=== PATIENT | male | born 1990 ===

== ENCOUNTER 2017-08-12 19:29 | Inpatient (IN) | payer MEDICAID, OTHER ==
[2017-08-12 19:30] VITALS: BMI 24.3
[2017-08-12 20:46] LABS: BASO # 0.1 K/uL (0.0-0.2); BASO % 0.3 % (0.0-2.0); EOS % 0.2 % (0.0-4.0); HEMOGLOBIN 15.4 g/dL (12.0-18.0); LYMPH # 0.7 K/uL (1.0-4.3); LYMPH % 4.3 % (20.0-40.0); MEAN CELL VOLUME 88.8 fL (80.0-94.0); MEAN CORPUSCULAR HEMOGLOBIN 29.9 pg (27.0-31.0); MEAN CORPUSCULAR HGB CONC 33.7 g/dL (33.0-37.0); MEAN PLATELET VOLUME 10.2 fL (7.2-11.7); MONO # 0.8 K/uL (0.0-0.8); MONO % 4.9 % (0.0-10.0); NEUT # 14.7 K/uL (1.8-7.0); NEUT % 90.3 % (50.0-75.0); NRBC % 0.1 % (0.0-2.0); PLATELET COUNT 206 K/uL (130-400); RBC 5.16 Mil/uL (4.40-5.90); RED CELL DISTRIBUTION WIDTH 13.4 % (11.5-14.5); WHITE BLOOD COUNT 16.3 K/uL (4.8-10.8)
[2017-08-12 21:05] LABS: ALB/GLOB RATIO 1.3 (1.0-2.1); ALT/SGPT 54 U/L (21-72); AST/SGOT 51 U/L (17-59); BLOOD UREA NITROGEN 11 mg/dL (9-20); CALCIUM 9.3 mg/dl (8.6-10.4); GFR AFRICAN-AMERICAN > 60; GFR NON-AFRICAN AMERICAN > 60
[2017-08-12 21:17] LABS: BANDS 2 % (0-2); LYMPHOCYTE 6 % (20-40); MONOCYTE 8 % (0-10); NEUTROPHIL 84 % (50-75); PLATELET ESTIMATE NORMAL (NORMAL); TOTAL CELLS COUNTED 100
[2017-08-12] MEDS ORDERED: Vancomycin 1 gm/NS 200 ml 1 GM/200 ML BAG IVPB STA (21:31)
--- NOTE | 2017-08-12 22:02 | C.PDOC ---
History Of Present Illness Patient is a 27 y/o male who presents to the ED with a complaint of left knee pain and subjective fever for the last 5 days. Patient notes pain worsens with movement. Of note, patient reports to have received a tattoo to the left lower extremity 2 weeks ago. Denies any trauma. Chief Complaint (Nursing): Lower Extremity Problem/Injury History Per: Patient History/Exam Limitations: no limitations Onset/Duration Of Symptoms: Days (5) Current Symptoms Are (Timing): Still Present Recent travel outside of the [place]: No Past Medical History Reviewed: Historical Data, Nursing Documentation, Vital Signs Vital Signs: Last Vital Signs Temp 101 F H 08/12/17 19:52 Pulse 110 H 08/12/17 19:52 Resp 16 08/12/17 19:52 BP 126/74 08/12/17 19:52 Pulse Ox 98 08/12/17 22:04 - Medical History PMH: Anxiety Denies: Diabetes, Hepatitis, HIV, HTN, Chronic Kidney Disease, Seizures, Sexually Transmitted Disease Surgical History: No Surg Hx - [facility] Procedures INDIV PSYCHOTHERAPY FOR SUBSTANCE ABUSE TREATMENT, SUPPORT (07/17/16) Family History: States: Hypertension - Social History Hx Tobacco Use: Yes Hx Alcohol Use: No Hx Substance Use: Yes - Immunization History Hx Tetanus Toxoid Vaccination: Yes Hx Influenza Vaccination: No Hx Pneumococcal Vaccination: No Review Of Systems Constitutional: Positive for: Fever (subjective) Cardiovascular: Negative for: Chest Pain Respiratory: Negative for: Shortness of Breath Musculoskeletal: Positive for: Leg Pain (left knee pain) Physical Exam - Physical Exam Appears: Well, Non-toxic, No Acute Distress Skin: Normal Color, Warm, Dry, Other (diffuse erythema to the left knee, warm to touch) Head: Atraumatic, Normacephalic Oral Mucosa: Moist Neck: Supple Cardiovascular: Rhythm Regular, No Murmur Respiratory: Normal Breath Sounds, No Rales, No Rhonchi, No Wheezing Gastrointestinal/Abdominal: Soft, No Tenderness Extremity: No Normal ROM (slight decrease in ROM to left knee), No Deformity, No Swelling Pulses: Left Femoral: Normal, Left Dorsalis Pedis: Normal Neurological/Psych: Oriented x3, Normal Speech, Normal Cognition Gait: Steady ED Course And Treatment - Laboratory Results Result Diagrams: 08/12/17 20:39 08/12/17 20:39 O2 Sat by Pulse Oximetry: 98 Progress Note: Left knee XR and blood culture ordered. Tylenol and vancomycin administered. Case discussed with Dr Fontaine who agrees with plan and accepts patient under service. Patient admitted. Disposition - Disposition Disposition Time: 21:15 Condition: STABLE - Clinical Impression Clinical Impression: Joint swelling, Joint pain, Cellulitis of knee - Scribe Statement The provider has reviewed the documentation as recorded by the Scribe Leann Johnson All medical record entries made by the Jeromyibe were at my direction and personally dictated by me. I have reviewed the chart and agree that the record accurately reflects my personal performance of the history, physical exam, medical decision making, and the department course for this patient. I have also personally directed, reviewed, and agree with the discharge instructions and disposition.
[2017-08-13] MEDS ORDERED: cefTRIAXone 2 GM IN NS 2 GM/100 ML BAG IVPB SCH (09:00)
--- NOTE | 2017-08-13 09:03 | RAD ---
PROCEDURE: Left Knee Radiographs. HISTORY: Pain. COMPARISON: None. FINDINGS: BONES: No evidence of acute displaced fracture nor dislocation. The osseous structures intact. No cortical destructive changes are identified JOINTS: Joint spaces preserved. No significant osteoarthritis. JOINT EFFUSION: None. OTHER FINDINGS: No evidence of subcutaneous emphysema IMPRESSION: No evidence of acute displaced fracture nor dislocation. No obvious cortical destructive changes. No significant osteoarthritis. If cellulitis or early osteomyelitis suspected clinically recommend followup MRI and. .
[2017-08-13] MEDS: cefTRIAXone 2 GM in Sodium Chloride 0.9% 100 ML IVPB SCH (10:00)
--- NOTE | 2017-08-13 10:31 | CP.PCM.HP ---
History of Present Illness - History of Present Illness History of Present Illness: pt came for redness and pain swlling r knee had david few weeks ago had pastule which he squseed few days ago Present on Admission - Present on Admission Any Indicators Present on Admission: No Review of Systems - Constitutional Constitutional: As Per HPI - EENT Eyes: As Per HPI Ears: As Per HPI Nose/Mouth/Throat: As Per HPI - Cardiovascular Cardiovascular: As Per HPI - Respiratory Respiratory: As Per HPI - Gastrointestinal Gastrointestinal: As Per HPI - Genitourinary Genitourinary: As Per HPI - Reproductive: Male Reproductive:Male: As Per HPI - Musculoskeletal Additional comments: knee redness r and tederness and swelling - Integumentary Integumentary: As Per HPI - Neurological Neurological: As Per HPI - Psychiatric Psychiatric: As Per HPI - Endocrine Endocrine: As Per HPI - Hematologic/Lymphatic Hematologic: As Per HPI Past Patient History - Infectious Disease Hx of Infectious Diseases: None - Past Medical History & Family History Past Medical History?: Yes - Past Social History Smoking Status: Light Smoker < 10 Cigarettes Daily - CARDIAC Hx Hypertension: No - PULMONARY Hx Respiratory Disorders: No - NEUROLOGICAL Hx Seizures: No - HEENT Hx HEENT Problems: No - RENAL Hx Chronic Kidney Disease: No - ENDOCRINE/METABOLIC Hx Endocrine Disorders: No - HEMATOLOGICAL/ONCOLOGICAL Hx Human Immunodeficiency Virus (HIV): No - INTEGUMENTARY Hx Dermatological Problems: No - MUSCULOSKELETAL/RHEUMATOLOGICAL Hx Falls: No - GASTROINTESTINAL Hx Gastrointestinal Disorders: No - GENITOURINARY/GYNECOLOGICAL Hx Sexually Transmitted Disorders: No - PSYCHIATRIC Hx Anxiety: Yes Hx Substance Use: Yes - SURGICAL HISTORY Hx Surgeries: No - ANESTHESIA Hx Anesthesia: Yes Hx Anesthesia Reactions: No Meds Allergies/Adverse Reactions: Allergies Allergy/AdvReac Type Severity Reaction Status Date / Time No Known Allergies Allergy Verified 08/12/17 19:56 Physical Exam - Constitutional Appears: In Acute Distress - Head Exam Head Exam: ATRAUMATIC - Eye Exam Eye Exam: Normal appearance Pupil Exam: NORMAL ACCOMODATION - ENT Exam ENT Exam: Mucous Membranes Moist - Neck Exam Neck exam: Positive for: Normal Inspection - Respiratory Exam Respiratory Exam: Clear to Auscultation Bilateral - Cardiovascular Exam Cardiovascular Exam: REGULAR RHYTHM - GI/Abdominal Exam GI & Abdominal Exam: Normal Bowel Sounds - Rectal Exam Rectal Exam: NORMAL INSPECTION - Exam Exam: NORMAL INSPECTION - Extremities Exam Additional comments: r knee celulitis - Back Exam Back exam: NORMAL INSPECTION - Neurological Exam Neurological exam: Alert, Normal Gait, Oriented x3 - Psychiatric Exam Psychiatric exam: Normal Affect - Skin Skin Exam: Normal Color Results - Vital Signs Recent Vital Signs: Last Vital Signs Temp 99.3 F 08/13/17 07:30 Pulse 58 L 08/13/17 07:30 Resp 20 08/13/17 07:30 BP 129/84 08/13/17 07:30 Pulse Ox 98 08/13/17 07:30 - Labs Result Diagrams: 08/12/17 20:39 08/12/17 20:39 Labs: Laboratory Results - last 24 hr 08/12/17 08/12/17 20:39 20:39 WBC 16.3 H D RBC 5.16 Hgb 15.4 Hct 45.8 MCV 88.8 D MCH 29.9 MCHC 33.7 RDW 13.4 Plt Count 206 MPV 10.2 Neut % (Auto) 90.3 H Lymph % (Auto) 4.3 L [place] % (Auto) 4.9 Eos % (Auto) 0.2 Baso % (Auto) 0.3 Neut # (Auto) 14.7 H Lymph # (Auto) 0.7 L [place] # (Auto) 0.8 Eos # (Auto) 0.0 Baso # (Auto) 0.1 Neutrophils % (Manual) 84 H Band Neutrophils % 2 Lymphocytes % (Manual) 6 L Monocytes % (Manual) 8 Platelet Estimate Normal RBC Morphology Normal Sodium 138 Potassium 4.3 Chloride 100 Carbon Dioxide 25 Anion Gap 18 BUN 11 Creatinine 0.8 Est GFR ( Amer) > 60 Est GFR (Non-Af Amer) > 60 Random Glucose 80 Calcium 9.3 Total Bilirubin 0.8 AST 51 ALT 54 Alkaline Phosphatase 75 Total Protein 8.8 H Albumin 5.0 Globulin 3.7 Albumin/Globulin Ratio 1.3 Assessment & Plan - Assessment and Plan (Free Text) Assessment: oj celulitis r knee r/o osteo Plan: as per orders - Date & Time Date: 08/13/17 Time: 10:33
[2017-08-13] MEDS: Oxycodone/Acetaminophen 5/325 mg Tab PO PRN ×2 (11:09→17:06)
[2017-08-13] MEDS ORDERED: Gadodiamide 287 mg/ml 20 ml IV ONE (12:45)
--- NOTE | 2017-08-13 14:38 | CP.PCM.CON ---
History of Present Illness - History of Present Illness History of Present Illness: dictated Past Patient History - Infectious Disease Hx of Infectious Diseases: None - Past Medical History & Family History Past Medical History?: Yes - Past Social History Smoking Status: Light Smoker < 10 Cigarettes Daily - CARDIAC Hx Hypertension: No - PULMONARY Hx Respiratory Disorders: No - NEUROLOGICAL Hx Seizures: No - HEENT Hx HEENT Problems: No - RENAL Hx Chronic Kidney Disease: No - ENDOCRINE/METABOLIC Hx Endocrine Disorders: No - HEMATOLOGICAL/ONCOLOGICAL Hx Human Immunodeficiency Virus (HIV): No - INTEGUMENTARY Hx Dermatological Problems: No - MUSCULOSKELETAL/RHEUMATOLOGICAL Hx Falls: No - GASTROINTESTINAL Hx Gastrointestinal Disorders: No - GENITOURINARY/GYNECOLOGICAL Hx Sexually Transmitted Disorders: No - PSYCHIATRIC Hx Anxiety: Yes Hx Substance Use: Yes - SURGICAL HISTORY Hx Surgeries: No - ANESTHESIA Hx Anesthesia: Yes Hx Anesthesia Reactions: No Meds Allergies/Adverse Reactions: Allergies Allergy/AdvReac Type Severity Reaction Status Date / Time No Known Allergies Allergy Verified 08/12/17 19:56 - Medications Medications: Current Medications Enoxaparin Sodium (Lovenox) 40 mg SC DAILY [facility] Vancomycin HCl 1,250 gm/ (Sodium Chloride) 250 mls @ 167 mls/hr IVPB Q12 LEFTY PRN Reason: Protocol Last Admin: 08/13/17 10:55 Dose: 167 mls/hr Ceftriaxone Sodium 2 gm/ (Sodium Chloride) 100 mls @ 200 mls/hr IVPB Q24H LEFTY PRN Reason: Protocol Last Admin: 08/13/17 10:00 Dose: 200 mls/hr Oxycodone/Acetaminophen (Percocet 5/325 Mg Tab) 1 tab PO Q6H PRN PRN Reason: Pain, severe (8-10) Stop: 08/16/17 06:22 Last Admin: 08/13/17 11:09 Dose: 1 tab Pneumococcal Polyvalent Vaccine (Pneumovax 23 Vaccine) 0.5 ml IM .ONCE ONE Stop: 08/14/17 10:01 Results - Vital Signs Recent Vital Signs: Last Vital Signs Temp 99.3 F 08/13/17 07:30 Pulse 58 L 08/13/17 07:30 Resp 20 08/13/17 07:30 BP 129/84 08/13/17 07:30 Pulse Ox 98 08/13/17 07:30 - Labs Result Diagrams: 08/12/17 20:39 08/12/17 20:39 Labs: Laboratory Results - last 24 hr 08/12/17 08/12/17 20:39 20:39 WBC 16.3 H D RBC 5.16 Hgb 15.4 Hct 45.8 MCV 88.8 D MCH 29.9 MCHC 33.7 RDW 13.4 Plt Count 206 MPV 10.2 Neut % (Auto) 90.3 H Lymph % (Auto) 4.3 L [place] % (Auto) 4.9 Eos % (Auto) 0.2 Baso % (Auto) 0.3 Neut # (Auto) 14.7 H Lymph # (Auto) 0.7 L [place] # (Auto) 0.8 Eos # (Auto) 0.0 Baso # (Auto) 0.1 Neutrophils % (Manual) 84 H Band Neutrophils % 2 Lymphocytes % (Manual) 6 L Monocytes % (Manual) 8 Platelet Estimate Normal RBC Morphology Normal Sodium 138 Potassium 4.3 Chloride 100 Carbon Dioxide 25 Anion Gap 18 BUN 11 Creatinine 0.8 Est GFR ( Amer) > 60 Est GFR (Non-Af Amer) > 60 Random Glucose 80 Calcium 9.3 Total Bilirubin 0.8 AST 51 ALT 54 Alkaline Phosphatase 75 Total Protein 8.8 H Albumin 5.0 Globulin 3.7 Albumin/Globulin Ratio 1.3
[2017-08-13 17:45] LABS: HEPATITIS B SURFACE AG Negative (NEGATIVE)
[2017-08-13 17:51] LABS: HEPATITIS A IGM NEGATIVE (NEGATIVE); HEPATITIS B CORE AB NEGATIVE (NEGATIVE)
[2017-08-13 18:02] LABS: HEPATITIS C ANTIBODY NEGATIVE (NEGATIVE)
--- NOTE | 2017-08-13 18:28 | MRI ---
EXAM: MR Left Lower Extremity Without and With Intravenous Contrast, Knee EXAM DATE/TIME: Exam ordered 08/13/2017 11:50 AM CLINICAL HISTORY: 27 years old, male; Signs and symptoms; Swelling or effusion of joint; Knee; Additional info: R/O om TECHNIQUE: Multiplanar magnetic resonance images of the left knee without and with intravenous contrast. CONTRAST: 17 mL of 17 administered intravenously. COMPARISON: CR - KNEE 3 VIEWS LT 2015-01-12 19:16 FINDINGS: BONES/JOINTS/CARTILAGE: Patellofemoral compartment: There is a small amount of fluid in the suprapatellar bursa. Femorotibial compartments: Unremarkable. Extensor mechanism: Unremarkable. Medial meniscus: There is abnormal signal noted within the posterior horn of the medial meniscus communicating with the inferior articular surface. Lateral meniscus: Unremarkable. No tear. Medial capsule/supporting structures: Unremarkable. Normal medial collateral ligament. Lateral capsule/supporting structures: Unremarkable. Normal lateral collateral ligament. Anterior cruciate ligament: Unremarkable. Posterior cruciate ligament: Unremarkable. Musculature: Unremarkable. Soft tissues: There is edema noted within the prepatellar soft tissues extending into inferiorly and laterally IMPRESSION: 1. No osteomyelitis. 2. Prepatellar bursitis/cellulitis. 3. Oblique cleavage tear of the posterior horn the medial meniscus. 4. Small left joint effusion
[2017-08-13] MEDS ORDERED: Oxycodone/Acetaminophen 5/325 mg Tab PO ONE (21:00)
--- NOTE | 2017-08-14 02:07 | CON ---
DATE: 08/13/2017 REQUESTED BY: Dr. Steph Oliveira. HISTORY OF PRESENT ILLNESS: This patient is a 27-year-old male. He came to the emergency room with left knee pain and having fevers for last five days and pain was worse when he would put his foot down and have a movement. He states two weeks ago, he shaved his left leg to get a tattoo, and after the tattoo, he states he did have a cut from the razor. At that time, he did not make any notice of it. He did go for the tattoo. After getting the tattoo, he started to have these small abscess on his left knee, and he states four days ago, it started to come up and was very painful, so he decided to shave it, and after shaving, it became more painful and has fever. He came with a temp of 101 here. He is feeling little better at this time, he denies any HIV disease. He states he was tested in his doctor's office recently, and he is waiting to get the report. He thinks he has lot of tattoos on his upper body as well as legs and arms and tattoo is very significant part of his body at this time. MEDICATIONS: He takes no medication. ALLERGIES: HE IS NOT ALLERGIC TO ANY MEDICINE. 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 PAST MEDICAL HISTORY: He has no history of diabetes. He denies any hepatitis, HIV, hypertension, chronic kidney disease, or any STDs. He did test; however, for HIV. SURGERY: He has had no previous surgeries. REVIEW OF SYSTEMS: He was running fevers. Denies any headaches. Denies ear, nose, throat problem. Denies any chest pain. No shortness of breath. No abdominal pain. No nausea, no vomiting. Does have left knee pain as well as pain from the left knee goes to the foot. He has some opening on top of the tattoo, left tattoo as well as on the left knee. He has diffuse swelling, warmth, and redness, and small few abscesses. He denies any other skin problems in the past. He did show me, however, one scab which he had from long time ago from the right side. He has no urinary problems. Denies any STDs. PHYSICAL EXAMINATION: VITAL SIGNS: I find his temperature was 100 today in the morning, blood pressure is 129/84, respirations are 20, heart rate is 58. His temp is now 99.3. HEENT: Head is atraumatic, normocephalic. He did state he had a tetanus shot two years ago for a cut. Head is atraumatic, normocephalic. Pupils are reacting to light. Eye movements are unremarkable. Tongue is moist. NECK: Supple. JVP is flat. Trachea is central. No lymphadenopathy present. LUNGS: Clear to auscultation. No crackles or rales present. HEART: S1, S2 is regular. No murmurs appreciated. ABDOMEN: Soft, nontender, no guarding, no rigidity present. Left knee has cellulitis with few abscesses, maybe some effusion. He went for an MRI and has a tattoo which is involving the whole of the left leg and this also has some area which may have a small abscess within the tattoo but it is too small to figure that out with the black tattoo on top. There is mild warmth of the leg but more warmth on the left knee. There may be some effusion but this is mostly in the __knee___ area;which has the redness, swelling, and small abscess. IMPRESSION: Right leg is unremarkable. Labs are noted. White count was 16.3 yesterday, hemoglobin is 15.4, hematocrit 45.8, platelet count is 206. Sodium is 138, potassium 4.3, chloride 100, bicarb is 25, BUN is 11, creatinine is 0.8, and sugar was 80. I want to see if he is already antibiotics, he is started on vancomycin 1250 every 12 hours, and I also put him on Rocephin not knowing the etiology initially and blood culture was done. Urine culture was received. White count is 16.3. We will order labs for tomorrow, and he went for an MRI report of which is pending. Left knee was done x-ray which shows, they made a comparison, there is no evidence of acute displaced fracture, no dislocation, no obvious cortical destructive changes, no significant osteolyses. If cellulitis are at least suspected, recommend MRI. While at this time, my impression is that he has left knee cellulitis with abscess . He did say he had a cut on the leg and may be the bacteria got in from there. He has small tiny abscesses along with cellulitis on the left knee. I doubt he has a septic arthritis. We will wait for the MRI report, and orthopedic report suggest at this time to continue vancomycin and Rocephin, and if there is small abscesses rupture, we can send a wound culture or if they are denuded, we will follow again tomorrow to repeat the labs again, ESR, and I would like to get HIV and hepatitis profile on this patient because he has multiple tattoos and will follow otherwise. He denies and any STDs, denies any sore throat, denies any urinary complaints, and I told him not to get any more tattoos done as his whole body is covered with them Cj Esposito MD [facility]
[2017-08-14 08:19] LABS: BASO # 0.1 K/uL (0.0-0.2); BASO % 0.8 % (0.0-2.0); EOS # 0.2 K/uL (0.0-0.7); HEMOGLOBIN 14.8 g/dL (12.0-18.0); LYMPH # 1.3 K/uL (1.0-4.3); LYMPH % 12.8 % (20.0-40.0); MEAN CELL VOLUME 88.6 fL (80.0-94.0); MEAN PLATELET VOLUME 10.2 fL (7.2-11.7); MONO # 0.6 K/uL (0.0-0.8); MONO % 6.2 % (0.0-10.0); NEUT # 8.2 K/uL (1.8-7.0); NEUT % 78.2 % (50.0-75.0); NRBC % 0.2 % (0.0-2.0); RBC 4.76 Mil/uL (4.40-5.90); RED CELL DISTRIBUTION WIDTH 13.1 % (11.5-14.5); WHITE BLOOD COUNT 10.5 K/uL (4.8-10.8)
[2017-08-14 08:41] LABS: ALB/GLOB RATIO 1.3 (1.0-2.1); ALBUMIN 4.2 g/dL (3.5-5.0); ALT/SGPT 37 U/L (21-72); AST/SGOT 25 U/L (17-59); BLOOD UREA NITROGEN 11 mg/dL (9-20); CALCIUM 9.2 mg/dl (8.6-10.4); GFR AFRICAN-AMERICAN > 60; GFR NON-AFRICAN AMERICAN > 60
[2017-08-14] MEDS: cefTRIAXone 2 GM in Sodium Chloride 0.9% 100 ML IVPB SCH (09:36)
[2017-08-14] MEDS: Oxycodone/Acetaminophen 5/325 mg Tab PO PRN ×2 (09:37→18:33)
[2017-08-14] MEDS: Enoxaparin 40 mg Syringe SC SCH (09:44)
[2017-08-14] MEDS ORDERED: Pneumococcal 23-Valent Vaccine IM ONE (10:00)
[2017-08-14] MEDS ORDERED: Oxycodone/Acetaminophen 5/325 mg Tab PO STA (11:06)
--- NOTE | 2017-08-14 11:12 | CP.PCM.PN ---
Subjective - Date & Time of Evaluation Date of Evaluation: 08/14/17 Time of Evaluation: 11:09 - Subjective Subjective: still in pain swelling redness knee had skin bulous aspirated and sent for culture today Objective - Vital Signs/Intake and Output Vital Signs (last 24 hours): Temp Pulse Resp BP Pulse Ox 98.6 F 54 L 20 128/84 96 08/14/17 08:33 08/14/17 08:33 08/14/17 08:33 08/14/17 08:33 08/14/17 08:33 Intake and Output: 08/14/17 08/14/17 06:59 18:59 Intake Total 120 Output Total 500 Balance -380 - Medications Medications: Current Medications Enoxaparin Sodium (Lovenox) 40 mg SC DAILY [facility] Last Admin: 08/14/17 09:44 Dose: 40 mg Ceftriaxone Sodium 2 gm/ (Sodium Chloride) 100 mls @ 200 mls/hr IVPB Q24H LEFTY PRN Reason: Protocol Last Admin: 08/14/17 09:36 Dose: 200 mls/hr Vancomycin HCl 1,250 gm/ (Sodium Chloride) 250 mls @ 167 mls/hr IVPB Q12 LEFTY PRN Reason: Protocol Oxycodone/Acetaminophen (Percocet 5/325 Mg Tab) 1 tab PO Q6H PRN PRN Reason: Pain, severe (8-10) Stop: 08/16/17 06:22 Last Admin: 08/14/17 09:37 Dose: 1 tab - Labs Labs: 08/14/17 08:08 08/14/17 08:08 - Constitutional Appears: In Acute Distress - Head Exam Head Exam: NORMOCEPHALIC - Eye Exam Eye Exam: Normal appearance Pupil Exam: NORMAL ACCOMODATION - ENT Exam ENT Exam: Normal Exam - Neck Exam Neck Exam: Full ROM - Respiratory Exam Respiratory Exam: NORMAL BREATHING PATTERN - Cardiovascular Exam Cardiovascular Exam: REGULAR RHYTHM - GI/Abdominal Exam GI & Abdominal Exam: Normal Bowel Sounds - Rectal Exam Rectal Exam: Deferred - Exam Exam: NORMAL INSPECTION - Extremities Exam Extremities Exam: Normal Capillary Refill Additional comments: knee swalen skinred - Back Exam Back Exam: NORMAL INSPECTION - Neurological Exam Neurological Exam: Alert, Oriented x3 - Psychiatric Exam Psychiatric exam: Normal Affect - Skin Skin Exam: Normal Color Assessment and Plan - Assessment and Plan (Free Text) Assessment: ac celulitis knee sweling infection no osteomilitis Plan: cont iv antibiotics
--- NOTE | 2017-08-14 20:56 | CP.PCM.PN ---
Subjective - Date & Time of Evaluation Date of Evaluation: 08/14/17 Time of Evaluation: 05:40 - Subjective Subjective: dictated Objective - Vital Signs/Intake and Output Vital Signs (last 24 hours): Temp Pulse Resp BP Pulse Ox 98.4 F 52 L 18 133/80 99 08/14/17 15:55 08/14/17 15:55 08/14/17 15:55 08/14/17 15:55 08/14/17 15:55 Intake and Output: 08/14/17 08/15/17 18:59 06:59 Intake Total 1150 Balance 1150 - Medications Medications: Current Medications Enoxaparin Sodium (Lovenox) 40 mg SC DAILY [facility] Last Admin: 08/14/17 09:44 Dose: 40 mg Ceftriaxone Sodium 2 gm/ (Sodium Chloride) 100 mls @ 200 mls/hr IVPB Q24H LETFY PRN Reason: Protocol Last Admin: 08/14/17 09:36 Dose: 200 mls/hr Vancomycin HCl 1,250 mg/ (Sodium Chloride) 250 mls @ 167 mls/hr IVPB Q12H LEFTY PRN Reason: Protocol Last Admin: 08/14/17 12:42 Dose: 167 mls/hr Oxycodone/Acetaminophen (Percocet 5/325 Mg Tab) 1 tab PO Q6H PRN PRN Reason: Pain, severe (8-10) Stop: 08/16/17 06:22 Last Admin: 08/14/17 18:33 Dose: 1 tab - Labs Labs: 08/14/17 08:08 08/14/17 08:08
[2017-08-15] MEDS: Oxycodone/Acetaminophen 5/325 mg Tab PO PRN ×4 (00:43→21:31)
[2017-08-15 01:18] VITALS: RESP 20
--- NOTE | 2017-08-15 01:28 | PN ---
DATE: 08/14/2017 SUBJECTIVE: He still complains of left knee pain and left thigh pain, and he was asking for Percocet to the nurse when I went to see him. His cellulitis over the knee was getting better though wound culture was pending and still has redness and swelling. They aspirated the small abscess, which was there and has been sent for culture. He has a history of anxiety. PHYSICAL EXAMINATION: GENERAL: He is very anxious. VITAL SIGNS: T-max was 98.6, heart rate was 54, blood pressure 128/84, respirations are 20. HEENT: Head is atraumatic and normocephalic. NECK: Supple. LUNGS: Clear. HEART: S1 and S2 are regular. ABDOMEN: Soft. Nontender. EXTREMITIES: Left knee with decreasing redness and swelling. Has a dressing at this time where they aspirated. He has tattoo christiansen on the left leg, which seems to be also healing at this time. LABORATORY DATA: White count 10.5, hemoglobin 14.8, hematocrit 42.2, platelet count is 217. Chemistry showed sodium 138, potassium 4.3, chloride of 103, CO2 is 25, BUN is 11, creatinine 0.9. C-reactive protein is 59. ASSESSMENT AND PLAN: We also did HIV and hepatitis profile, which are both negative at this time because he does have tattoo christiansen and vancomycin trough was 6.4, which was low, I think, he is getting 1 gm. He is on Rocephin also, and he is on vancomycin 1250 mg every 12 hours. At this time, we will leave it at this. He had an MRI done, which showed no involvement of the knee, but it shows cellulitis in suprapatellar. It showed no osteomyelitis, prepatellar bursitis, and cellulitis obliquely with tear of the posterior horn of the medial meniscus, small left joint effusion. At this time, he has prepatellar bursitis and cellulitis and came in with a high white count and fever. We will need to follow the culture report depending on how he responds. He may need antibiotics. I think in his case it is better to give oral. We will see ortho evaluation. Cj Esposito MD
[2017-08-15] MEDS: Enoxaparin 40 mg Syringe SC SCH (09:14)
[2017-08-15] MEDS: cefTRIAXone 2 GM in Sodium Chloride 0.9% 100 ML IVPB SCH (09:17)
--- NOTE | 2017-08-15 15:45 | CP.PCM.PN ---
Subjective - Date & Time of Evaluation Date of Evaluation: 08/15/17 Time of Evaluation: 03:00 - Subjective Subjective: dictated Objective - Vital Signs/Intake and Output Vital Signs (last 24 hours): Temp Pulse Resp BP Pulse Ox 98.1 F 59 L 20 124/58 L 96 08/15/17 08:46 08/15/17 08:46 08/15/17 08:46 08/15/17 08:46 08/15/17 08:46 Intake and Output: 08/15/17 08/15/17 06:59 18:59 Intake Total 490 Output Total 350 Balance 140 - Medications Medications: Current Medications Enoxaparin Sodium (Lovenox) 40 mg SC DAILY [facility] Last Admin: 08/15/17 09:14 Dose: 40 mg Ceftriaxone Sodium 2 gm/ (Sodium Chloride) 100 mls @ 200 mls/hr IVPB Q24H LEFTY PRN Reason: Protocol Last Admin: 08/15/17 09:17 Dose: 200 mls/hr Vancomycin HCl 1,250 mg/ (Sodium Chloride) 250 mls @ 167 mls/hr IVPB Q12H LEFTY PRN Reason: Protocol Last Admin: 08/15/17 12:40 Dose: 167 mls/hr Oxycodone/Acetaminophen (Percocet 5/325 Mg Tab) 1 tab PO Q6H PRN PRN Reason: Pain, severe (8-10) Stop: 08/16/17 06:22 Last Admin: 08/15/17 09:15 Dose: 1 tab - Labs Labs: 08/14/17 08:08 08/14/17 08:08
--- NOTE | 2017-08-15 15:58 | CP.PCM.PN ---
Subjective - Date & Time of Evaluation Date of Evaluation: 08/15/17 Time of Evaluation: 15:55 - Subjective Subjective: pt feels beter pastular vesicle discarge pus opened skin redness and knee tenerness is beter Objective - Vital Signs/Intake and Output Vital Signs (last 24 hours): Temp Pulse Resp BP Pulse Ox 98.1 F 59 L 20 124/58 L 96 08/15/17 08:46 08/15/17 08:46 08/15/17 08:46 08/15/17 08:46 08/15/17 08:46 Intake and Output: 08/15/17 08/15/17 06:59 18:59 Intake Total 490 300 Output Total 350 Balance 140 300 - Medications Medications: Current Medications Enoxaparin Sodium (Lovenox) 40 mg SC DAILY [facility] Last Admin: 08/15/17 09:14 Dose: 40 mg Ceftriaxone Sodium 2 gm/ (Sodium Chloride) 100 mls @ 200 mls/hr IVPB Q24H LEFTY PRN Reason: Protocol Last Admin: 08/15/17 09:17 Dose: 200 mls/hr Vancomycin HCl 1,250 mg/ (Sodium Chloride) 250 mls @ 167 mls/hr IVPB Q12H LEFTY PRN Reason: Protocol Last Admin: 08/15/17 12:40 Dose: 167 mls/hr Mupirocin (Bactroban Ointment) 1 gm TOP BID LEFTY Oxycodone/Acetaminophen (Percocet 5/325 Mg Tab) 1 tab PO Q6H PRN PRN Reason: Pain, severe (8-10) Stop: 08/16/17 06:22 Last Admin: 08/15/17 15:00 Dose: 1 tab - Labs Labs: 08/14/17 08:08 08/14/17 08:08 - Constitutional Appears: Non-toxic - Head Exam Head Exam: NORMAL INSPECTION - Eye Exam Eye Exam: Normal appearance Pupil Exam: NORMAL ACCOMODATION - ENT Exam ENT Exam: Normal Exam - Neck Exam Neck Exam: Normal Inspection - Respiratory Exam Respiratory Exam: Clear to Ausculation Bilateral - Cardiovascular Exam Cardiovascular Exam: REGULAR RHYTHM - GI/Abdominal Exam GI & Abdominal Exam: Normal Bowel Sounds - Rectal Exam Rectal Exam: NORMAL INSPECTION - Exam Exam: NORMAL INSPECTION - Extremities Exam Additional comments: knee less swalen less redness - Back Exam Back Exam: NORMAL INSPECTION - Neurological Exam Neurological Exam: Oriented x3 - Psychiatric Exam Psychiatric exam: Normal Mood - Skin Skin Exam: Normal Color Assessment and Plan - Assessment and Plan (Free Text) Assessment: ac inection skin and pastule pain swling knee imroving cont antibiotics Plan: as per orders
--- NOTE | 2017-08-16 00:35 | PN ---
DATE: 08/15/2017 SUBJECTIVE: Patient still complains of pain when he stands. He says the pain is in the knee but knee is looking little better. I am still waiting for the culture reports and there is still has some redness and has some drainage, so we will get him mupirocin cream to apply locally. OBJECTIVE: VITAL SIGNS: T-max is 98.1, pulse is 51, blood pressure 137/86, respirations are 20. HEENT: Head is atraumatic and normocephalic. NECK: Supple. LUNGS: Clear. No crackles and rales present. HEART: S1, S2 is regular. ABDOMEN: Soft, nontender. No guarding, no rigidity present. EXTREMITIES: Left knee has minimal fluctuance. ASSESSMENT AND PLAN: This area where there was an abscess still appears unclean now, so we will put mupirocin and redness is decreasing and that daisha appears unremarkable now which he has on his leg. I am waiting for the sensitivities if tomorrow. If this gram-positive cocci comes out to be methicillin-sensitive, then he can go on dicloxacillin 500 q.i.d. for another 10 days and if it is methicillin-resistant Staphylococcus aureus, then we will have to give Zyvox 600 one p.o. b.i.d. for 2 weeks. We will continue the culture reports hopefully tomorrow and if he improves further, then we will discuss about discharge with the primary. Thank you and we will follow with you. Cj Esposito MD
[2017-08-16] MEDS: AMPHETAMINE SALT 10 MG PO SCH ×2 (08:20→12:23)
[2017-08-16] MEDS: cefTRIAXone 2 GM in Sodium Chloride 0.9% 100 ML IVPB SCH (09:14)
[2017-08-16] MEDS: Enoxaparin 40 mg Syringe SC SCH (09:16)
[2017-08-16] MEDS: Oxycodone/Acetaminophen 5/325 mg Tab PO PRN ×2 (09:32→15:16)
--- NOTE | 2017-08-16 12:16 | CP.PCM.PN ---
Subjective - Date & Time of Evaluation Date of Evaluation: 08/16/17 Time of Evaluation: 12:13 - Subjective Subjective: pt feels good celuliti improved the pastule culture is posive mrsa Objective - Vital Signs/Intake and Output Vital Signs (last 24 hours): Temp Pulse Resp BP Pulse Ox 98.2 F 97 H 20 118/70 100 08/16/17 08:52 08/16/17 08:52 08/16/17 08:52 08/16/17 08:52 08/16/17 08:52 Intake and Output: 08/16/17 08/16/17 06:59 18:59 Intake Total 1450 Balance 1450 - Medications Medications: Current Medications Enoxaparin Sodium (Lovenox) 40 mg SC DAILY [facility] Last Admin: 08/16/17 09:16 Dose: 40 mg Home Med (Patient's Own Control Medication) 1 tab PO 0800,1200 [facility] Last Admin: 08/16/17 08:20 Dose: 1 tab Ceftriaxone Sodium 2 gm/ (Sodium Chloride) 100 mls @ 200 mls/hr IVPB Q24H LEFTY PRN Reason: Protocol Last Admin: 08/16/17 09:14 Dose: 200 mls/hr Vancomycin HCl 1,250 mg/ (Sodium Chloride) 250 mls @ 167 mls/hr IVPB Q12H LEFTY PRN Reason: Protocol Last Admin: 08/16/17 00:03 Dose: 167 mls/hr Mupirocin (Bactroban Ointment) 1 gm TOP BID [facility] Last Admin: 08/16/17 09:15 Dose: 1 gm Oxycodone/Acetaminophen (Percocet 5/325 Mg Tab) 1 tab PO Q6H PRN PRN Reason: Pain, severe (8-10) Stop: 08/19/17 08:38 Last Admin: 08/16/17 09:32 Dose: 1 tab - Labs Labs: 08/14/17 08:08 08/14/17 08:08 - Constitutional Appears: Non-toxic - Head Exam Head Exam: NORMOCEPHALIC - Eye Exam Eye Exam: PERRL Pupil Exam: NORMAL ACCOMODATION - ENT Exam ENT Exam: Mucous Membranes Moist - Neck Exam Neck Exam: Normal Inspection - Respiratory Exam Respiratory Exam: Clear to Ausculation Bilateral, NORMAL BREATHING PATTERN - Cardiovascular Exam Cardiovascular Exam: REGULAR RHYTHM - GI/Abdominal Exam GI & Abdominal Exam: Normal Bowel Sounds - Rectal Exam Rectal Exam: NORMAL INSPECTION - Exam Exam: NORMAL INSPECTION - Extremities Exam Extremities Exam: Normal Capillary Refill, Normal Inspection - Back Exam Back Exam: NORMAL INSPECTION - Neurological Exam Neurological Exam: Normal Gait, Oriented x3 - Psychiatric Exam Psychiatric exam: Normal Mood - Skin Skin Exam: Normal Color Assessment and Plan - Assessment and Plan (Free Text) Assessment: celulitis leg and knee imroved pastul culter skin mrsa infection cont as per id consult
--- NOTE | 2017-08-16 15:52 | CP.PCM.PN ---
Subjective - Date & Time of Evaluation Date of Evaluation: 08/16/17 Time of Evaluation: 03:35 - Subjective Subjective: dictated Objective - Vital Signs/Intake and Output Vital Signs (last 24 hours): Temp Pulse Resp BP Pulse Ox 98.2 F 97 H 20 118/70 100 08/16/17 08:52 08/16/17 08:52 08/16/17 08:52 08/16/17 08:52 08/16/17 08:52 Intake and Output: 08/16/17 08/16/17 06:59 18:59 Intake Total 1450 300 Balance 1450 300 - Medications Medications: Current Medications Enoxaparin Sodium (Lovenox) 40 mg SC DAILY [facility] Last Admin: 08/16/17 09:16 Dose: 40 mg Home Med (Patient's Own Control Medication) 1 tab PO 0800,1200 [facility] Last Admin: 08/16/17 12:23 Dose: 1 tab Ceftriaxone Sodium 2 gm/ (Sodium Chloride) 100 mls @ 200 mls/hr IVPB Q24H LEFTY PRN Reason: Protocol Last Admin: 08/16/17 09:14 Dose: 200 mls/hr Vancomycin HCl 1,250 mg/ (Sodium Chloride) 250 mls @ 167 mls/hr IVPB Q12H LEFTY PRN Reason: Protocol Last Admin: 08/16/17 12:21 Dose: 167 mls/hr Mupirocin (Bactroban Ointment) 1 gm TOP BID [facility] Last Admin: 08/16/17 09:15 Dose: 1 gm Oxycodone/Acetaminophen (Percocet 5/325 Mg Tab) 1 tab PO Q6H PRN PRN Reason: Pain, severe (8-10) Stop: 08/19/17 08:38 Last Admin: 08/16/17 15:16 Dose: 1 tab - Labs Labs: 08/14/17 08:08 08/14/17 08:08
[2017-08-16 16:07] VITALS: BP 134/85; PULSE 61; TEMP 98.4; O2SAT 97
--- NOTE | 2017-08-16 16:12 | CP.PCM.PN ---
Subjective - Date & Time of Evaluation Date of Evaluation: 08/16/17 Time of Evaluation: 16:10 - Subjective Subjective: PT SEEN BY DR. SEAY THIS AFTERNOON AND BY DR. BOYCE AND CLEARED FOR D/C HOME TODAY. RX GIVEN TO PT BY DR. BOYCE. PT TO F/U WITH Danielle SEAY IN THE OFFICE. NO FURTHER ORDERS. -FOLLOW UP WITH DR. SEAY IN HER OFFICE IN 1 WEEK---CALL THE OFFICE TO MAKE AN APPT. -NEW PRESCRIPTIONS INCLUDE: 1) MUPIROCIN CREAM TO BE APPLIED TO THE AFFECTED KNEE TWICE A DAY. 2) MUPIROCIN OINTMENT TO BE APPLIED TO BOTH NOSTRILS TWICE A DAY FOR 10 DAYS. 3) CLINDAMYCIN 300 MG THREE TIMES A DAY FOR 10 DAYS 4) ACIDOPHILUS TWICE A DAY FOR 20 DAYS. -PLEASE BE CAREFUL WITH YOUR KNEE; THE INFECTION YOU HAVE IS CONTAGIOUS. -IF YOU HAVE ANY QUESTIONS, CONTACT DR. SEAY OR DR. BOYCE. Objective - Vital Signs/Intake and Output Vital Signs (last 24 hours): Temp Pulse Resp BP Pulse Ox 98.4 F 61 20 134/85 97 08/16/17 15:00 08/16/17 15:00 08/16/17 15:00 08/16/17 15:00 08/16/17 15:00 Intake and Output: 08/16/17 08/16/17 06:59 18:59 Intake Total 1450 300 Balance 1450 300 - Medications Medications: Current Medications Enoxaparin Sodium (Lovenox) 40 mg SC DAILY [facility] Last Admin: 08/16/17 09:16 Dose: 40 mg Home Med (Patient's Own Control Medication) 1 tab PO 0800,1200 [facility] Last Admin: 08/16/17 12:23 Dose: 1 tab Ceftriaxone Sodium 2 gm/ (Sodium Chloride) 100 mls @ 200 mls/hr IVPB Q24H LEFTY PRN Reason: Protocol Last Admin: 08/16/17 09:14 Dose: 200 mls/hr Vancomycin HCl 1,250 mg/ (Sodium Chloride) 250 mls @ 167 mls/hr IVPB Q12H LEFTY PRN Reason: Protocol Last Admin: 08/16/17 12:21 Dose: 167 mls/hr Mupirocin (Bactroban Ointment) 1 gm TOP BID [facility] Last Admin: 08/16/17 09:15 Dose: 1 gm Oxycodone/Acetaminophen (Percocet 5/325 Mg Tab) 1 tab PO Q6H PRN PRN Reason: Pain, severe (8-10) Stop: 08/19/17 08:38 Last Admin: 08/16/17 15:16 Dose: 1 tab - Labs Labs: 08/14/17 08:08 08/14/17 08:08
--- NOTE | 2017-08-16 20:45 | PN ---
DATE: 08/16/2017 SUBJECTIVE: The patient is afebrile, he is feeling better. Left knee swelling and redness is improving. The patient was seen by Dr. Fontaine and the patient is improved and he is going to be going home. The culture; however, came out to be MRSA, I have discussed the problems with MRSA and the patient is feeling better. PHYSICAL EXAMINATION: VITAL SIGNS: T-max is 98.2, pulse 97, blood pressure 118/70 and respirations are 20, vitals are stable. HEENT: Head is atraumatic and normocephalic. NECK: Supple. LUNGS: Clear. HEART: S1, S2 are regular. ABDOMEN: Soft. Nontender. No guarding. No rigidity present. EXTREMITIES: Left knee decreased redness. Have no edema. He has no pain on ambulation now. LABORATORY DATA: BUN is 11, creatinine is 0.9.. ASSESSMENT AND PLAN: The patient will be going home with mupirocin to the nose, mupirocin to the wound and also clindamycin 300 mg t.i.d. for 10 days and to follow up with the primary. Cj Esposito MD
== END 2017-08-16 17:08 | disposition home or self-care (01) | DRG 278 ==
LOC: C.ER 19:29 → C.9E 21:12 → C.6T 23:09
PROVIDERS: ADMIT Internal Medicine; ATTEND Internal Medicine
DX: L03.116 Cellulitis of left lower limb (principal); L02.416 Cutaneous abscess of left lower limb; M70.42 Prepatellar bursitis, left knee; B95.62 Methicillin resistant Staphylococcus aureus infection as the cause of diseases classified elsewhere; I10 Essential (primary) hypertension

== ENCOUNTER 2018-05-16 11:42 | Emergency (ER) | payer OTHER ==
[2018-05-16 11:49] VITALS: BMI 28.7
[2018-05-16 11:51] VITALS: BP 126/85; PULSE 72; RESP 18; TEMP 98.9; O2SAT 99
--- NOTE | 2018-05-16 13:04 | RAD ---
Date of service: 05/16/2018 PROCEDURE: Radiographs of the left tibia and fibula. HISTORY: Pain COMPARISON: None available. TECHNIQUE: Frontal and lateral views obtained. FINDINGS: BONES: Bone alignment and mineralization are normal. There is no acute displaced fracture or bone destruction. JOINT SPACES: Unremarkable. OTHER FINDINGS: None. IMPRESSION: Normal examination.
--- NOTE | 2018-05-16 13:10 | C.PDOC ---
History Of Present Illness 28 year old male, who is otherwise well, presents to the ED for evaluation of left malagon pain which began around 5 days ago. He describes his pain as sharp and states it is worse with dorsiflexion of his foot. 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 Patient denies known trauma to the area. Patient also reveals that he has been binging on marijuana, cocaine and alcohol over the past two days, has not been sleeping for the past two night, and feels very anxious. Patient states he is planning on seeking help from a therapist. Patient denies headache, nausea, vomiting, chest pain, shortness of breath, suicidal/homicidal ideation at this time. Time Seen by Provider: 05/16/18 12:02 Chief Complaint (Nursing): Lower Extremity Problem/Injury History Per: Patient History/Exam Limitations: no limitations Onset/Duration Of Symptoms: Days (5) Current Symptoms Are (Timing): Still Present Additional History Per: Patient Past Medical History Reviewed: Historical Data, Nursing Documentation, Vital Signs Vital Signs: Last Vital Signs Temp 98.9 F 05/16/18 11:48 Pulse 72 05/16/18 11:48 Resp 18 05/16/18 11:48 BP 126/85 05/16/18 11:48 Pulse Ox 99 05/16/18 11:48 - Medical History PMH: Anxiety Denies: Diabetes, Hepatitis, HIV, HTN, Chronic Kidney Disease, Seizures, Sexually Transmitted Disease Surgical History: No Surg Hx - [facility] INDIV PSYCHOTHERAPY FOR SUBSTANCE ABUSE TREATMENT, SUPPORT (07/17/16) Family History: States: Hypertension - Social History Hx Tobacco Use: Yes Hx Alcohol Use: Yes Hx Substance Use: Yes - Immunization History Hx Tetanus Toxoid Vaccination: Yes Hx Influenza Vaccination: No Hx Pneumococcal Vaccination: No Review Of Systems Cardiovascular: Positive for: Palpitations (occasional, associated with cocaine use ). Negative for: Chest Pain Respiratory: Negative for: Shortness of Breath Gastrointestinal: Negative for: Nausea, Vomiting Musculoskeletal: Positive for: Other (left malagon pain ) Neurological: Negative for: Headache Psych: Positive for: Anxiety, Other (admits to cocaine, marijuana and alcohol use ). Negative for: Suicidal ideation Physical Exam - Physical Exam Appears: Non-toxic, No Acute Distress Skin: Normal Color, Warm, Dry Head: Atraumatic, Normacephalic Eye(s): bilateral: Normal Inspection Oral Mucosa: Moist Neck: Supple Chest: Symmetrical, No Deformity, No Tenderness Cardiovascular: Rhythm Regular, No Murmur Respiratory: Normal Breath Sounds, No Rales, No Rhonchi, No Wheezing Gastrointestinal/Abdominal: Soft, No Tenderness Extremity: Normal ROM (left foot ), Tenderness (to left anterior malagon ), No Calf Tenderness (or swelling ), Capillary Refill (less than 2 seconds ), No Deformity, No Swelling, No Other (erythema to left malagon ) Pulses: Left Dorsalis Pedis: Normal, Right Dorsalis Pedis: Normal Neurological/Psych: Oriented x3, Normal Speech, Normal Cognition, Normal Motor, Normal Sensation ED Course And Treatment O2 Sat by Pulse Oximetry: 99 (on RA) Pulse Ox Interpretation: Normal - Other Rad left tibia/fibula XR X-Ray: Viewed By Me, Read By Radiologist Interpretation: Date of service: 05/16/2018. PROCEDURE: Radiographs of the left tibia and fibula. HISTORY: Pain. COMPARISON: None available. TECHNIQUE: Frontal and lateral views obtained. FINDINGS: BONES: Bone alignment and mineralization are normal. There is no acute displaced fracture or bone destruction. JOINT SPACES: Unremarkable. OTHER FINDINGS: None. IMPRESSION: Normal examination. Medical Decision Making Medical Decision Making: Progress: Left tibia/fibula XR ordered and reviewed. Tylenol PO and Motrin PO given. Patient was evaluated by crisis team and asked if would like to receive inpatient detox, which he declined. Patient states he will follow up with Dr. Stein as an outpatient. On reassessment, patient is resting comfortably, showing no signs of distress and is stable for discharge. Disposition - Disposition Referrals: Ye Stein MD [Staff Provider] - Disposition: HOME/ ROUTINE Disposition Time: 13:08 Condition: STABLE Prescriptions: Ibuprofen [Motrin] 600 mg PO TID #15 tab Instructions: Malagon Splints (DC) Forms: General Discharge Instructions, [facility] ([place]), Work Excuse - POA Present On Arrival: None - Clinical Impression Clinical Impression: Malagon splint of left lower extremity, Substance abuse - Scribe Statement The provider has reviewed the documentation as recorded by the Scribe (Desire Wilson) Provider Attestation: All medical record entries made by the Scribe were at my direction and personally dictated by me. I have reviewed the chart and agree that the record accurately reflects my personal performance of the history, physical exam, medical decision making, and the department course for this patient. I have also personally directed, reviewed, and agree with the discharge instructions and disposition.
== END 2018-05-16 13:19 | disposition home or self-care (01) ==
LOC: C.ER 11:42
DX: S86.892A Other injury of other muscle(s) and tendon(s) at lower leg level, left leg, initial encounter (principal); X58.XXXA Exposure to other specified factors, initial encounter; F19.10 Other psychoactive substance abuse, uncomplicated